=== PATIENT | male | born 1935 | race Caucasian/White ===

== ENCOUNTER 2016-12-11 09:56 | Observation (INO) | payer OTHER ==
[~2016-12-11] VITALS: Ht 167.6 cm; Wt 86.8 kg
[~2016-12-11 09:56] MED LIST: ACTOS45 MG PO; AMARYL4 MG; AMARYL4 MG PO; ASPIRIN325 MG PO; CARDIZEM CD,CA300 MG PO; CARVEDILOL6.25 MG; CARVEDILOL6.25 MG PO; CENTRUM SILVER1 EAC3 PO; COREG6.25 M1 PO; Coreg PO; DILTIAZEM 24HR300 MG PO; ELIQUIS5 MG PO; Ecotrin PO; FISH OIL 1,2001 EAC4 PO; FUROSEMIDE20 MG; FUROSEMIDE20 MG PO; Fish Oil PO; GARLIC1 EACH PO; GARLIC1000 MG PO; GLUCOPHAGE1000 M1 PO; GLUCOPHAGE1000 MG PO; Garlic PO; JANUVIA100 MG PO; JOINT FLEX TP; LASIX20 MG PO; LISINOPRIL20 MG PO; Lasix PO; MACULAR VITAMI1 EACH PO; MECLIZINE HCL12.5 M1 PO; PRINIVIL20 MG PO; SIMVASTATIN40 MG PO; SYNTHROID50 MCG PO; TAZTIA XT300 M1; TYLENOL ARTHRI650 MG PO; Theragran-M,Centrum, PO; ZESTRIL20 MG PO; ZOCOR40 MG PO; Zocor PO; [UNRECOGNIZED DRUG - OTHER] PO
[2016-12-11] MEDS ORDERED: TRESIBA FL100 UNIT/1 SC (10:28)
[2016-12-11 11:04] LABS: EOSINOPHIL (%) 4.7 % (0-5); EOSINOPHIL COUNT 0.3 K/uL (0-0.3); HEMATOCRIT 40.1 % (38.0-50.0); IMMATURE GRANULOCYTE (%) 0.9 % (0.0-0.7); IMMATURE GRANULOCYTE COUNT 0.1 K/uL; INSTRUMENT ABS NEUTROPHIL CT 4.5 K/uL; LYMPHOCYTE COUNT 1.2 K/uL (1.0-2.8); MCH 29.1 PG (29.0-34.0); MCHC 31.7 G/DL (30.0-36.0); MEAN PLAT.VOLUME 9.1 uM^3 (9.0-12.4); MONOCYTE (%) 10.9 % (3-12); MONOCYTE COUNT 0.7 K/uL (0-0.8); NEUTROPHIL (%) 66.2 % (45-76); NEUTROPHIL COUNT 4.5 K/uL (1.8-6.4); PLATELET COUNT 173 K/uL (156-360); RBC DIS.WIDTH-CV 16.1 % (11.8-14.6); RBC DIS.WIDTH-SD 53.6 % (39-53); RED BLOOD COUNT 4.36 M/uL (4.00-5.50); WHITE BLOOD COUNT 6.8 K/uL (4.1-10.2)
[2016-12-11 11:12] LABS: CHLORIDE 106 mEq/L (99-109); POTASSIUM 4.4 mEq/L (3.7-5.4); SODIUM 143 mEq/L (136-147)
[2016-12-11 11:14] LABS: GLUCOSE 227 mg/dL (70-99)
[2016-12-11 11:15] LABS: D-DIMER ELISA 0.55 mg/L FEU (< 0.57)
[2016-12-11 11:16] LABS: ANION GAP 13 MEQ/L (2-14); TOTAL BILIRUBIN 1.3 mg/dL (0.0-1.0)
[2016-12-11 11:18] LABS: ALKALINE PHOSPHATASE 71 IU/L (3-129); GFR ESTIMATE (CALCULATED) > 59 mL/min/
[2016-12-11 11:19] LABS: UREA NITROGEN (BUN) 28 mg/dL (9-23)
[2016-12-11 11:24] LABS: TROP-I INTERPRETATION NEGATIVE; TROPONIN-I 0.05 ng/mL (0.0-0.30)
[2016-12-11] MEDS ORDERED: TRADJENTA5 MG PO (15:23)
[2016-12-11 17:30] VITALS: BP 146/99
[2016-12-11 18:40] LABS: TROP-I INTERPRETATION NEGATIVE; TROPONIN-I 0.06 ng/mL (0.0-0.30)
[2016-12-11 23:58] VITALS: BP 138/77
[2016-12-12 01:27] LABS: TROP-I INTERPRETATION NEGATIVE; TROPONIN-I 0.07 ng/mL (0.0-0.30)
[2016-12-12 03:44] VITALS: BP 140/87
[2016-12-12 06:01] LABS: HEMATOCRIT 39.4 % (38.0-50.0); MCH 28.4 PG (29.0-34.0); MCHC 31.5 G/DL (30.0-36.0); MCV 90.2 FL (86-99); MEAN PLAT.VOLUME 9.1 uM^3 (9.0-12.4); PLATELET COUNT 183 K/uL (156-360); RED BLOOD COUNT 4.37 M/uL (4.00-5.50); WHITE BLOOD COUNT 7.3 K/uL (4.1-10.2)
[2016-12-12 06:26] LABS: ALKALINE PHOSPHATASE 54 IU/L (3-129); ANION GAP 8 MEQ/L (2-14); CHLORIDE 102 MEQ/L (99-109); GFR ESTIMATE (CALCULATED) > 59 mL/min/; POTASSIUM 3.6 MEQ/L (3.7-5.4); SAMPLE HEMOLYSIS CHECK 0; SAMPLE ICTERIC CHECK 0; SAMPLE LIPEMIA CHECK 0; SODIUM 141 MEQ/L (136-147); TOTAL BILIRUBIN 1.6 MG/DL (0.0-1.0); UREA NITROGEN (BUN) 20 mg/dL (9-23)
[2016-12-12 06:31] LABS: GLUCOSE 76 mg/dL (70-99)
[2016-12-12 07:35] VITALS: BP 180/94
[2016-12-12] MEDS ORDERED: FUROSEMIDE20 MG PO (10:24)
[2016-12-12 13:07] VITALS: BP 158/92
== END 2016-12-12 14:08 | disposition home or self-care (01) ==
LOC: EME 09:56 → EDOF 15:01 → 5WEST 15:01
PROVIDERS: Emergency Medicine; Internal Medicine; Nurse Practitioner Adult Health
DX: I11.0 Hypertensive heart disease with heart failure (principal); I50.23 Acute on chronic systolic (congestive) heart failure; I48.91 Unspecified atrial fibrillation; E11.9 Type 2 diabetes mellitus without complications; I25.10 Atherosclerotic heart disease of native coronary artery without angina pectoris; I25.2 Old myocardial infarction; E78.5 Hyperlipidemia, unspecified; Z95.1 Presence of aortocoronary bypass graft
CPT/HCPCS: 71020; 71275; 80053; 82948; 83880; 84484; 85025; 85027; 85379; 93005; 99281; 99284; G0378; J1940

== ENCOUNTER 2017-09-07 20:01 | Emergency (ER) | payer OTHER ==
[~2017-09-07] VITALS: Ht 167.6 cm; Wt 99.2 kg
[~2017-09-07 20:01] MED LIST changes: +TRADJENTA5 MG PO; +TRESIBA FL100 UNIT/1 SC
[2017-09-07 20:32] LABS: HEMATOCRIT 35.2 % (38.0-50.0); MCH 26.1 PG (29.0-34.0); MCHC 31.3 G/DL (30.0-36.0); MCV 83.4 FL (86-99); MEAN PLAT.VOLUME 9.2 uM^3 (9.0-12.4); PLATELET COUNT 183 K/uL (156-360); RBC DIS.WIDTH-SD 51.3 % (39-53); RED BLOOD COUNT 4.22 M/uL (4.00-5.50); WHITE BLOOD COUNT 10.3 K/uL (4.1-10.2)
[2017-09-07 20:42] LABS: CHLORIDE 103 mEq/L (99-109)
[2017-09-07 20:43] LABS: SODIUM 137 mEq/L (136-147)
[2017-09-07 20:44] LABS: GLUCOSE 181 mg/dL (70-99)
[2017-09-07 20:46] LABS: ANION GAP 12 MEQ/L (2-14)
[2017-09-07 20:48] LABS: GFR ESTIMATE (CALCULATED) > 59 mL/min/ (58.99-99999)
[2017-09-07 20:49] LABS: UREA NITROGEN (BUN) 19 mg/dL (9-23)
[2017-09-07 20:56] LABS: TROP-I INTERPRETATION NEGATIVE; TROPONIN-I 0.05 ng/mL (0.0-0.30)
[2017-09-07] MEDS ORDERED: LEVAQUIN750 MG PO (23:09)
[2017-09-07 23:24] VITALS: BP 155/92
== END 2017-09-07 23:24 | disposition home or self-care (01) ==
LOC: EME 20:01
DX: J18.9 Pneumonia, unspecified organism (principal); I50.9 Heart failure, unspecified; E78.5 Hyperlipidemia, unspecified; F41.9 Anxiety disorder, unspecified; Z95.1 Presence of aortocoronary bypass graft; Z88.6 Allergy status to analgesic agent; Z88.8 Allergy status to other drugs, medicaments and biological substances
CPT/HCPCS: 71020; 80048; 84484; 85027; 93005; 94640; 99281; 99284

== ENCOUNTER 2018-02-05 20:46 | Emergency (ER) | payer OTHER ==
[~2018-02-05] VITALS: Ht 167.6 cm; Wt 102.2 kg
[~2018-02-05 20:46] MED LIST changes: +COREG12.5 M1 PO; -COREG6.25 M1 PO; +LEVAQUIN750 MG PO
[2018-02-05 21:30] LABS: HEMATOCRIT 34.2 % (38.0-50.0); HEMOGLOBIN 10.4 G/DL (12.5-16.6); MCH 25.3 PG (29.0-34.0); MCHC 30.4 G/DL (30.0-36.0); MCV 83.2 FL (86-99); PLATELET COUNT 191 K/uL (156-360); RBC DIS.WIDTH-CV 17.5 % (11.8-14.6); RBC DIS.WIDTH-SD 52.6 % (39-53); RED BLOOD COUNT 4.11 M/uL (4.00-5.50); WHITE BLOOD COUNT 8.2 K/uL (4.1-10.2)
[2018-02-05 21:38] LABS: CHLORIDE 100 mEq/L (99-109); POTASSIUM 3.9 mEq/L (3.7-5.4); SODIUM 137 mEq/L (136-147)
[2018-02-05 21:40] LABS: GLUCOSE 279 mg/dL (70-99)
[2018-02-05 21:44] LABS: CREATININE 1.1 mg/dL (0.6-1.3); GFR ESTIMATE (CALCULATED) > 59 mL/min/ (58.99-99999)
[2018-02-05 21:45] LABS: UREA NITROGEN (BUN) 21 mg/dL (9-23)
[2018-02-05 23:20] LABS: INTER. NORMALIZED RATIO 1.5
[2018-02-05 23:22] LABS: PTT 32.9 SEC (25-37)
[2018-02-05 23:40] LABS: TROP-I INTERPRETATION NEGATIVE; TROPONIN-I 0.06 ng/mL (0.0-0.30)
[2018-02-06 00:35] VITALS: BP 160/84
[2018-02-06] MEDS ORDERED: ENTRESTO 24 MG1 EACH PO (07:30)
[2018-02-06] MEDS ORDERED: LASIX40 MG PO (07:31)
[2018-02-06] MEDS ORDERED: GLIMEPIRIDE4 MG PO (07:31)
== END 2018-02-06 00:47 | disposition left against medical advice (07) ==
LOC: EME 20:46
PROVIDERS: Physician Assistant
DX: I50.9 Heart failure, unspecified (principal); I48.91 Unspecified atrial fibrillation; J98.4 Other disorders of lung; R94.31 Abnormal electrocardiogram [ECG] [EKG]; S22.20XA Unspecified fracture of sternum, initial encounter for closed fracture; E78.5 Hyperlipidemia, unspecified; F41.9 Anxiety disorder, unspecified; Z79.01 Long term (current) use of anticoagulants; Z79.84 Long term (current) use of oral hypoglycemic drugs; Z87.01 Personal history of pneumonia (recurrent); Z95.1 Presence of aortocoronary bypass graft; Z98.890 Other specified postprocedural states; Z85.9 Personal history of malignant neoplasm, unspecified; Z88.7 Allergy status to serum and vaccine; Z88.6 Allergy status to analgesic agent; Z88.8 Allergy status to other drugs, medicaments and biological substances
CPT/HCPCS: 71046; 80048; 83880; 84484; 85027; 85610; 85730; 93005; 94640; 99281; 99285; J1940

== ENCOUNTER 2018-02-06 03:18 | Inpatient (IN) | payer OTHER ==
[~2018-02-06] VITALS: Ht 167.6 cm; Wt 96.6 kg
[2018-02-06 04:19] LABS: TROP-I INTERPRETATION NEGATIVE; TROPONIN-I 0.06 ng/mL (0.0-0.30)
[2018-02-06 04:22] LABS: APPEARANCE CLEAR ((CLEAR)); BILIRUBIN NEGATIVE; BLOOD NEGATIVE; COLOR STRAW ((YELLOW)); GLUCOSE (STRIP) NEGATIVE; KETONES NEGATIVE; LEUKOCYTES TRACE; NITRITE NEGATIVE; PROTEIN (STRIP) 30; SPECIFIC GRAVITY 1.008 (1.000-1.030); UROBILINOGEN 0.2 MG/DL (0.2-1.0)
[2018-02-06 04:40] LABS: BACTERIA NONE SEEN /HPF; EPITHELIAL CELLS NONE SEEN /HPF; MUCUS NONE SEEN /LPF; RED BLOOD CELLS 0-5 /HPF (0-5); UCUL ADDED? NO; WHITE BLOOD CELLS 0-5 /HPF (0-5)
[2018-02-06] MEDS ORDERED: ENTRESTO 24 MG1 EACH PO (07:30)
[2018-02-06] MEDS ORDERED: GLIMEPIRIDE4 MG PO (07:31)
[2018-02-06] MEDS ORDERED: LASIX40 MG PO (07:31)
[2018-02-06 09:28] LABS: HEMATOCRIT 34.7 % (38.0-50.0); HEMOGLOBIN 10.7 G/DL (12.5-16.6); MCH 25.4 PG (29.0-34.0); MCHC 30.8 G/DL (30.0-36.0); MCV 82.2 FL (86-99); PLATELET COUNT 197 K/uL (156-360); RBC DIS.WIDTH-CV 17.7 % (11.8-14.6); RBC DIS.WIDTH-SD 51.3 % (39-53); RED BLOOD COUNT 4.22 M/uL (4.00-5.50); WHITE BLOOD COUNT 10.8 K/uL (4.1-10.2)
[2018-02-06 09:38] LABS: CHLORIDE 100 mEq/L (99-109); POTASSIUM 3.6 mEq/L (3.7-5.4); SODIUM 139 mEq/L (136-147)
[2018-02-06 09:39] LABS: GLUCOSE 209 mg/dL (70-99)
[2018-02-06 09:43] LABS: GFR ESTIMATE (CALCULATED) > 59 mL/min/ (58.99-99999)
[2018-02-06 09:44] LABS: UREA NITROGEN (BUN) 20 mg/dL (9-23)
[2018-02-06 09:50] LABS: TROP-I INTERPRETATION NEGATIVE; TROPONIN-I 0.06 ng/mL (0.0-0.30)
[2018-02-06 14:47] VITALS: BP 144/69
[2018-02-06 20:00] VITALS: BP 153/73
[2018-02-06 23:32] VITALS: BP 140/70
[2018-02-07 04:26] VITALS: BP 139/65
[2018-02-07 05:54] LABS: HEMATOCRIT 32.1 % (38.0-50.0); HEMOGLOBIN 9.8 G/DL (12.5-16.6); MCH 25.2 PG (29.0-34.0); MCHC 30.5 G/DL (30.0-36.0); MCV 82.5 FL (86-99); PLATELET COUNT 176 K/uL (156-360); RBC DIS.WIDTH-CV 17.7 % (11.8-14.6); RBC DIS.WIDTH-SD 52.2 % (39-53); RED BLOOD COUNT 3.89 M/uL (4.00-5.50); WHITE BLOOD COUNT 6.1 K/uL (4.1-10.2)
[2018-02-07 06:26] LABS: CHLORIDE 100 MEQ/L (99-109); CREATININE 0.9 MG/DL (0.6-1.3); GFR ESTIMATE (CALCULATED) > 59 mL/min/ (58.99-99999); MAGNESIUM 1.5 mg/dl (1.3-2.7); POTASSIUM 3.4 MEQ/L (3.7-5.4); SODIUM 138 MEQ/L (136-147); UREA NITROGEN (BUN) 20 mg/dL (9-23)
[2018-02-07 06:30] LABS: GLUCOSE 117 mg/dL (70-99)
[2018-02-07 17:06] VITALS: BP 158/84
[2018-02-07 20:00] VITALS: BP 120/70
[2018-02-08] VITALS (7 sets, daily range): BP systolic 124–152; BP diastolic 60–81
[2018-02-08 05:43] LABS: BASOPHIL (%) 0.7 % (0-1); EOSINOPHIL (%) 7.2 % (0-5); EOSINOPHIL COUNT 0.4 K/uL (0-0.3); HEMATOCRIT 33.4 % (38.0-50.0); HEMOGLOBIN 10.1 G/DL (12.5-16.6); IMMATURE GRANULOCYTE (%) 0.5 % (0.0-0.7); LYMPHOCYTE (%) 16.8 % (15-42); MCH 24.9 PG (29.0-34.0); MCHC 30.2 G/DL (30.0-36.0); MCV 82.3 FL (86-99); MONOCYTE (%) 17.3 % (3-12); NEUTROPHIL (%) 57.5 % (45-76); NEUTROPHIL COUNT 3.4 K/uL (1.8-6.4); PLATELET COUNT 206 K/uL (156-360); RBC DIS.WIDTH-CV 17.9 % (11.8-14.6); RBC DIS.WIDTH-SD 52.2 % (39-53); RED BLOOD COUNT 4.06 M/uL (4.00-5.50); WHITE BLOOD COUNT 5.8 K/uL (4.1-10.2)
[2018-02-08 06:26] LABS: ALBUMIN 3.5 G/DL (3.2-4.8); ALKALINE PHOSPHATASE 70 IU/L (3-129); ALT (GPT) 15 IU/L (3-49); AST (GOT) 26 IU/L (2-34); CHLORIDE 102 MEQ/L (99-109); GFR ESTIMATE (CALCULATED) > 59 mL/min/ (58.99-99999); POTASSIUM 3.8 MEQ/L (3.7-5.4); SODIUM 140 MEQ/L (136-147); TOTAL BILIRUBIN 0.8 MG/DL (0.0-1.0); UREA NITROGEN (BUN) 21 mg/dL (9-23)
[2018-02-08 06:29] LABS: GLUCOSE 79 mg/dL (70-99)
[2018-02-09 03:35] VITALS: BP 140/72
[2018-02-09 05:24] LABS: BASOPHIL (%) 0.7 % (0-1); EOSINOPHIL COUNT 0.5 K/uL (0-0.3); HEMOGLOBIN 10.4 G/DL (12.5-16.6); IMMATURE GRANULOCYTE (%) 0.9 % (0.0-0.7); LYMPHOCYTE (%) 18.1 % (15-42); MCH 24.6 PG (29.0-34.0); MCHC 29.7 G/DL (30.0-36.0); MCV 82.7 FL (86-99); MONOCYTE (%) 12.9 % (3-12); MONOCYTE COUNT 0.7 K/uL (0-0.8); NEUTROPHIL (%) 59.4 % (45-76); NEUTROPHIL COUNT 3.4 K/uL (1.8-6.4); PLATELET COUNT 199 K/uL (156-360); RBC DIS.WIDTH-CV 17.7 % (11.8-14.6); RBC DIS.WIDTH-SD 52.6 % (39-53); RED BLOOD COUNT 4.23 M/uL (4.00-5.50); WHITE BLOOD COUNT 5.6 K/uL (4.1-10.2)
[2018-02-09 06:18] LABS: CHLORIDE 103 MEQ/L (99-109); CREATININE 1.2 MG/DL (0.6-1.3); GFR ESTIMATE (CALCULATED) > 59 mL/min/ (58.99-99999); POTASSIUM 3.9 MEQ/L (3.7-5.4); SODIUM 142 MEQ/L (136-147); UREA NITROGEN (BUN) 27 mg/dL (9-23)
[2018-02-09 06:24] LABS: GLUCOSE 106 mg/dL (70-99)
[2018-02-09 08:49] VITALS: BP 137/66
[2018-02-09 09:36] LABS: HEMOGLOBIN A1c (GLYCOHEMOGLOB) 9.2 % (Below 5.7)
[2018-02-09] MEDS ORDERED: LASIX40 MG PO (11:53)
[2018-02-09] MEDS ORDERED: LASIX20 MG PO (11:53)
== END 2018-02-09 13:57 | disposition home or self-care (01) | DRG 292 ==
LOC: EME 03:18 → 4SOUTH 07:52 → EDOF 07:52 → ENRESERV 07:56 → 4SOUTH 14:40 → ENPENDDIS 02-09 → 4SOUTH 02-09 13:57
PROVIDERS: Emergency Medicine; Hospitalist; Internal Medicine; Nurse Practitioner Family
DX: I11.0 Hypertensive heart disease with heart failure (principal); I50.23 Acute on chronic systolic (congestive) heart failure; E78.5 Hyperlipidemia, unspecified; E11.9 Type 2 diabetes mellitus without complications; I25.10 Atherosclerotic heart disease of native coronary artery without angina pectoris; I25.2 Old myocardial infarction; I48.2 Chronic atrial fibrillation; I49.3 Ventricular premature depolarization; Z95.1 Presence of aortocoronary bypass graft; E66.9 Obesity, unspecified; Z68.35 Body mass index [BMI] 35.0-35.9, adult; E03.9 Hypothyroidism, unspecified; J98.11 Atelectasis; J84.10 Pulmonary fibrosis, unspecified; Z79.4 Long term (current) use of insulin; Z79.01 Long term (current) use of anticoagulants; Z95.5 Presence of coronary angioplasty implant and graft; I08.3 Combined rheumatic disorders of mitral, aortic and tricuspid valves
CPT/HCPCS: 71045; 71046; 71250; 80048; 80053; 81003; 82948; 83036; 83735; 83880; 84484; 85025; 85027; 85610; 85730; 93005; 93306; 94010; 94640; 94640 76; 94667; 94668; 94760; 94799; 99202; 99281; 99285; G0378; J1815; J1940; J3475